=== PATIENT | female | born 1945 | race Caucasian/White ===

== ENCOUNTER → 2017-07-02 | Day surgery (SDC) | payer BC, MEDICARE ==
[2017-07-02 13:49] VITALS: RESP 12; TEMP 98.2
[2017-07-02 16:10] VITALS: BP 139/78; PULSE 65
--- NOTE | 2017-07-02 16:55 | MM ---
EXAMINATION TYPE: MG stereo VAD BX LT, MG stereo VAD BX addl LT DATE OF EXAM: 07/02/2017 COMPARISON: 05/23/2017 CLINICAL HISTORY: 71-year-old female referred for biopsy of new left breast microcalcifications. TECHNIQUE: Stereotactic guided core biopsy of the left breast x 2. FINDINGS: The procedure of stereotactic guided core biopsy was explained to the patient. Benefits, alternatives, and risks were discussed. An informed consent was then obtained. SITE 1, 7:00: The shortness pathway for biopsy was chosen. Shortness pathway was CC from below approach. I performed the localization followed by the remainder of the procedure. A vacuum assisted biopsy gun was used to obtain four core samples. A dumbbell clip was placed. Postbiopsy mammogram shows 3.5 to 4.0 cm of superior clip migration as indicated on the postbiopsy image. SITE 2, 3:00: A superior approach was chosen as the calcifications could not be well reproduced via a lateral approach. I performed the localization followed by the remainder of the procedure. A vacuum assisted biopsy gun was used to obtain four core samples. A straight clip was placed. Postbiopsy mammogram shows clip in appropriate position. The patient tolerated the procedure well without any immediate complication. The patient was kept in the radiology department for short stay after the procedure and then discharged home in stable condition. Targeted calcifications are identified in both specimen mammograms. IMPRESSION: SUCCESSFUL, UNCOMPLICATED STEREOTACTIC GUIDED CORE BIOPSY OF 2 SITES OF MICROCALCIFICATIONS IN THE LEFT BREAST. FULL PATHOLOGY RESULTS TO FOLLOW. Pathology Results: Malignant A. 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 SEE SURGICAL PATHOLOGY CANCER CASE SUMMARY AND COMMENT. B. 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 SEE SURGICAL PATHOLOGY CANCER CASE SUMMARY AND COMMENT. Recommendation Surgical consult of the left breast. DANELLED
== END ==
LOC: RADMAMWWP 13:10
PROVIDERS: ATTEND Surgery
DX: D05.12 Intraductal carcinoma in situ of left breast (principal)
CPT/HCPCS: 88305; 88342; 88341; 19081; 19082; A4648; J2001

== ENCOUNTER 2017-07-30 06:29 | Day surgery (SDC) | payer MEDICARE ==
[2017-07-25 10:00] VITALS: BMI 21.2
[~2017-07-30 06:29] MED LIST: DEXAMETHASONE SOD PHOSPHATE 10 MG/ML 1 ML VIAL IV ONE; HEPARIN SODIUM,PORCINE 5,000 UNIT/ML 1 ML VIAL SQ ONE; LACTATED RINGERS 1,000 ML IV SCH; ONDANSETRON 4 MG/2 ML VIAL IVP ONE; Pre Op ABX Message 1 EACH MISC MISCELLANE ONE
[2017-07-30] MEDS ORDERED: ALPRAZolam 0.25 MG TAB PO ONE (07:01)
[2017-07-30] MEDS ORDERED: LIDOCAINE 1% 20 ML VIAL (10MG/ML) FOR IV START INTRADERMA ONE (07:15)
[2017-07-30] MEDS ORDERED: ROCURONIUM BROMIDE 10 MG/ML 10 ML VIAL IV ONE (09:00)
[2017-07-30] MEDS ORDERED: HYDROmorphone (PF) 1 MG/ML ONE (09:00)
[2017-07-30] MEDS ORDERED: NEOSTIGMINE 1 MG/ML 10 ML VIAL ONE (09:00)
[2017-07-30] MEDS ORDERED: GLYCOPYRROLATE 0.2 MG/ML 2 ML VIAL ONE (09:00)
[2017-07-30] MEDS ORDERED: fentaNYL (PF) 50 MCG/ML 2 ML AMP ONE (09:00)
[2017-07-30] MEDS ORDERED: MIDAZOLAM 2 MG/2 ML VIAL ONE (09:00)
[2017-07-30] MEDS ORDERED: LIDOCAINE 1% INJ 10MG/ML (20 ML MDV) ONE (09:00)
[2017-07-30] MEDS ORDERED: ePHEDrine SULFATE/0.9% NACL/PF 50 MG/5 ML SYRINGE IV ONE (09:00)
[2017-07-30] MEDS ORDERED: PROPOFOL 10 MG/ML 20 ML VIAL IV ONE (09:00)
[2017-07-30] MEDS ORDERED: SUCCINYLCHOLINE CHLORIDE 100 MG/5 ML SYR IV ONE (09:00)
[2017-07-30] MEDS ORDERED: SODIUM CHLORIDE 0.9% 50 ML with ceFAZolin 2,000 MG IV ONE ×2 (09:16)
--- NOTE | 2017-07-30 09:31 | NM ---
EXAMINATION TYPE: NM sentinel node injection DATE OF EXAM: 07/30/2017 COMPARISON: NONE HISTORY: Left breast carcinoma TECHNIQUE AND FINDINGS: The procedure of sentinel lymph node injection was explained to the patient. The benefits, alternatives, and risks were discussed. An informed consent was then obtained. Overlying skin is cleaned with sterile alcohol. Lidocaine buffered with bicarbonate was used as anes thetic into the skin and subcutaneous tissue surrounding the nipple. Following this, 590 uCi Tc 99m Filtered Sulfur Colloid was injected into 4 equivalent doses at 12, 3, 6, and 9:00 position surroundi ng the left nipple intradermally. The injection sites were massaged by nuclear pharmacist for 10 minutes after injection. T he patient tolerated the procedure well without any immediate complication. The patient was kept in the radiology department for short stay after the procedure and then taken to surgery for surgical pr ocedure what is presumed intraoperative gamma probe will be used for sentinel lymph node detection. IMPRESSION: Left breast radiotracer injection for sentinel node localization as above.
[2017-07-30] MEDS ORDERED: METHYLENE BLUE 10 MG/ML (10 ML VIAL) INJ ONE (09:32)
[2017-07-30] MEDS ORDERED: LACTATED RINGERS 1,000 ML IV ONE (09:58)
--- NOTE | 2017-07-30 11:05 | P.OP ---
Date of Procedure: 07/30/17 Preoperative Diagnosis: Left breast multifocal DCIS Anxiety disorder Personal H/O colon cancer Postoperative Diagnosis: Same Procedure(s) Performed: Left skin sparing mastectomy Left sentinel lymph node biopsy Anesthesia: VANESSA Surgeon: Judie Man Estimated Blood Loss (ml): 10 Pathology: other Condition: stable Disposition: PACU Indications for Procedure: 72 years old female presented with abnormal mammogram. Biopsy showed 2 distinct sites with DCIS. Informed consent obtained and patient elected to undergo left simple mastectomy with sentinel lymph node biopsy with possible axillary lymph node dissection. She is also undergoing immediate reconstruction with tissue handbag stitcher with Dr. Peguero. Operative Findings: 3 sentinel lymph nodes identified in left axilla all of which were negative for cancer Description of Procedure: The patient underwent injection of radioisotope in the radiology department. She was brought to the operating room and placed in supine position with both arms out. 5 mL of methylene blue was injected in the subdermal plane at 4 quadrants around the areola and the breast was massaged for 5 minutes . General anesthesia with endotracheal intubation was performed as per anesthesia team. No muscle relaxants were given. Chlorhexidine was used to prep the left breast and left axilla . Sterile drapes were applied. A timeout was performed to verify correct patient and correct procedure. Patient was confirmed to receive perioperative IV antibiotics, heparin 5000 units subcutaneous injection for the VTE prophylaxis and bilateral SCDs were placed. A keyhole-type skin incision was made extending from 1:00 to include the nipple and areola. Superior flap was raised up to inferior margin of the clavicle, medially to lateral margin of the sternum, inferior flap extending to inframammary crease and laterally to pectoralis major muscle. The breast tissue along with the pectoralis fascia was taken off with the specimen. Hemostasis checked. After entering the clavicopectoral fascia, a blue node was identified. This node was excised in its entirety. Additional 2 blue nodes were also identified and sent as sentinel lymph nodes for frozen section. [place] lymph nodes were negative for malignancy.Counts were correct. Please see Dr. Peguero' s note for remaining details Final Pathologic Diagnosis A. SENTINEL LYMPH NODES # 1 AND 2, BIOPSY: TWO LYMPH NODES NEGATIVE FOR METASTASIS. CK7 AND CINTHIA IMMUNOPEROXIDASE STAINS ARE CONFIRMATORY (CONTROLS APPROPRIATE). B. SENTINEL LYMPH NODE #3, BIOPSY: LYMPH NODE NEGATIVE FOR METASTASIS. CK7 AND CINTHIA IMMUNOPEROXIDASE STAINS ARE CONFIRMATORY (CONTROLS APPROPRIATE). C. BREAST, LEFT, MASTECTOMY: MULTIFOCAL HIGH GRADE DCIS, MARGINS NEGATIVE.
[2017-07-30] MEDS ORDERED: ONDANSETRON 4 MG/2 ML VIAL IVP PRN (11:08)
[2017-07-30] MEDS ORDERED: ALPRAZolam 0.25 MG TAB PO PRN (11:08)
[2017-07-30] MEDS: HYDROmorphone 1 MG/ML 1 ML SYRINGE IVP PRN ×2 (12:00→12:07)
[2017-07-30] MEDS: HYDROcodone/APAP 5-325MG 1 EACH TAB PO PRN ×2 (12:08→19:45)
[2017-07-30] MEDS ORDERED: HYDROmorphone 1 MG/ML 1 ML SYRINGE IVP ONE (15:31)
[2017-07-30] MEDS: LACTATED RINGERS 1,000 ML IV SCH (15:40)
[2017-07-30] MEDS: HEPARIN SODIUM,PORCINE 5,000 UNIT/ML 1 ML VIAL SQ SCH (16:49)
--- NOTE | 2017-07-30 19:55 | OP ---
OPERATIVE REPORT SURGEON: Dr. Kedar Peguero. DATE OF PROCEDURE: 07/30/2017 PREOPERATIVE DIAGNOSIS: 1. Acquired loss, left breast. 2. Left breast cancer. POSTOPERATIVE DIAGNOSIS: 1. Acquired loss, left breast. 2. Left breast cancer. OPERATIVE PROCEDURES: 1. Immediate reconstruction of left breast following mastectomy with insertion of tissue senior budget analyst and subsequent outpatient expansion. 2. Implantation of reconstructive graft for left breast reconstruction, 150 square cm. OPERATIVE INDICATIONS: Patient is a 72-year-old female with ductal carcinoma in situ of the left breast. She is here for left simple mastectomy with sentinel lymph node excision. The patient was referred to my care by her surgeon, Dr. Man, for breast reconstruction. The patient has elected to proceed with breast reconstruction and has decided upon a tissue senior budget analyst style technique. She understands the potential risks and complications of surgery as well as the staged nature of breast reconstructive surgery. She has requested I perform the surgery today. OPERATIVE PROCEDURE SUMMARY: The patient was seen presurgical area and markings were made, procedure reviewed, all questions answered. She was transported to the operating room, where she was placed in supine position. Following induction of general endotracheal anesthesia, the patient was prepped and draped in the usual fashion. Dr. Man then proceeded with the left simple mastectomy and left sentinel lymph node excision. Once those procedures were complete and the nodes were reported as negative, I then entered the procedure. Again, the patient was in supine position under general tracheal anesthesia. All sponge and needle counts for the prior procedure were correct. The left mastectomy wound was open with exposed muscle. At the base, the muscle appeared healthy. There was no active bleeding. There was a dissection pocket that extended into the left axilla from the sentinel lymph node excision as well. The wound was first irrigated. The pectorals major muscle was then identified where it joined the chest wall laterally. ( ) area all the connective tissue divided with cautery, allowing entry into the potential plane between the pectoralis major and minor muscles, which were first bluntly developed and then continued development with cauterization to release the attachment fibers, medial attachment fibers ( ) released with cautery. Additional muscle tissues were recruited for coverage inferomedially, rectus abdominus muscle and fascia inferiorly and laterally, external abdominal oblique muscle and fascia and laterally serratus anterior muscle and fascia were all elevated with cauterization. Hemostasis was maintained with cautery. Irrigation was then performed. Excellent hemostasis was present. The cavity was sized by measuring. Next two 19 round Dread channel drains were inserted in the surgical field, one for the sentinel lymph node dissection plane and the other to place under the mastectomy skin flaps. Drains were brought out of separate stab incisions in the left anterolateral chest wall, each drain sutured in place with 2-0 Prolene suture cut to appropriate length. The gloves were now changed, tissue senior budget analyst opened in the field from the [email or web address]. Interview [employer] high-profile model, reference number [id number], volume 375 mL, serial number [id number]. Device was only handled by the surgeon. All air was extracted from the device and then 50 mL of 0.9 normal saline instilled. The senior budget analyst was then inserted into the submuscular reconstructive plane created. The muscle could not be approximated over the senior budget analyst without significant tension; likely this would tear the muscle; therefore Surgimend reconstructive graft was opened on the field. The SurgiMend measured 10 x 15 cm. It was thin and fenestrated. SurgiMend was revitalized with room temperature saline. Once ready, the SurgiMend was then placed for the reconstruction deep to the muscle flap tissue but above the senior budget analyst and oriented in inferior sling technique. The SurgiMend was then sutured in with short running 3-0 Prolenes. The entire coverage of the senior budget analyst was now present. Irrigation was performed. Hemostasis was excellent. The mastectomy skin incision was closed. The lateral extension used for the node dissection was approximated directly, closing the deep dermis using inverted interrupted 4-0 Monocryl, and the closure of the superficial dermis and epidermis with running 5-0 Prolene. The circumareolar portion of the incision was closed with a pursestring using a deep dermal 2-0 Prolene followed by final approximation of the epidermal edges with 4-0 Monocryl. The site was cleansed with saline, dried, postoperative bandages placed using 4x4s secured with paper tape. Drains were connected to closed-bulb suction and patent. The patient was then awakened from her anesthetic, extubated and transferred to the recovery room in good condition with stable vital signs. There were no complications. MMODL / IJN: [id number] /
[2017-07-30] MEDS: DOCUSATE 100 MG CAP PO SCH (19:59)
[2017-07-30 20:57] VITALS: RESP 20
[2017-07-30] MEDS ORDERED: ZOLPIDEM 5 MG TAB PO SCH (21:00)
[2017-07-31] MEDS: HYDROcodone/APAP 5-325MG 1 EACH TAB PO PRN ×2 (02:18→07:36)
[2017-07-31] MEDS: LACTATED RINGERS 1,000 ML IV SCH (04:17)
[2017-07-31] MEDS: HEPARIN SODIUM,PORCINE 5,000 UNIT/ML 1 ML VIAL SQ SCH ×2 (04:17→07:37)
[2017-07-31] MEDS: DOCUSATE 100 MG CAP PO SCH (07:28)
[2017-07-31 08:54] VITALS: BP 141/67; PULSE 69; TEMP 97.2
--- NOTE | 2017-07-31 11:14 | P.DS ---
Providers Date of admission: July 30 Expected date of discharge: 07/31/17 Attending physician: Judie Man Consults: dr ledesma Primary care physician: [facility] Hospital Course: 72-year-old presented on elective basis to undergo left simple mastectomy for an abnormal mammogram. Biopsy showed 2 distinct sites with DCIS. Ductal carcinoma in situ left breast 3 SENTINEL lymph nodes identified in left axillary all of which were negative for cancer. Patient underwent immediate reconstruction with tissue helminthology teacher left breast per . Postop there were no events. Patient had [address] Jonathan-[address] dra[address] in [address]. Patient was able to be up ambulatory in the room denies dizziness lightheadedness chest pain or shortness of breath patient was felt to be appropriate to be discharged home with the plan the patient with follow-up with DR LEDESMA for subsequent outpatient expansion of the tissue helminthology teacher left breast Impression discharge diagnosis Left breast cancer with left simple mastectomy Immediate reconstruction of left breast following simple mastectomy with insertion of tissue helminthology teacher with subsequent outpatient expansion Anxiety disorder nonspecified Left breast with multifocal ductal carcinoma in situ left breast The above impression and plan of care have been discussed and directed by signing physician. Angélica Andrews nurse practitioner acting as scribe for signing physician. Plan - Discharge Summary New Discharge Prescriptions: New HYDROcodone/APAP 5-325MG [Chardon 5-325] 1 each PO Q4HR PRN #20 tab PRN Reason: Pain Continue Cyanocobalamin [Vitamin B-12] 500 mcg PO DAILY Cholecalciferol (Vitamin D3) [Vitamin D3] 2,000 unit PO DAILY Calcium Carbonate [Calcium] 600 mg PO Q3D ALPRAZolam [Xanax] 1 tab PO HS PRN PRN Reason: Anxiety Discharge Medication List Cholecalciferol (Vitamin D3) [Vitamin D3] 2,000 unit PO DAILY 06/24/17 [History] Cyanocobalamin [Vitamin B-12] 500 mcg PO DAILY 06/24/17 [History] Calcium Carbonate [Calcium] 600 mg PO Q3D 07/25/17 [History] ALPRAZolam [Xanax] 1 tab PO HS PRN 07/30/17 [History] HYDROcodone/APAP 5-325MG [Chardon 5-325] 1 each PO Q4HR PRN #20 tab 07/31/17 [Rx] Follow up Appointment(s)/Referral(s): Judie Man MD [STAFF PHYSICIAN] - 08/18/17 Kedar Ledesma MD [STAFF PHYSICIAN] - 1 Week Patient Instructions/Handouts: *Surgery [facility] - (Anesthesia) Discharge Instructions Outpatient Surgery, Breast Reconstruction With Implants and Expanders (DC), Mastectomy (DC) Activity/Diet/Wound Care/Special Instructions: No soaking bath. Ok to shower once drains are out. No heavy lifting more than 10lbs for 6 weeks after surgery. Ok to use stairs and walk. do not drive while taking Chardon for pain. HERO drain monitor. CALL DR ROJO'S OFFICE AND SCHEDULE RECHECK FOR FRIDAY [phone] Discharge Disposition: HOME SELF-CARE
== END 2017-07-31 11:55 | disposition home or self-care (01) ==
LOC: OR 06:29 → 6PED 11:49 → OR 07-31 11:55
PROVIDERS: ATTEND Surgery
DX: D05.12 Intraductal carcinoma in situ of left breast (principal); F41.1 Generalized anxiety disorder; F32.9 Major depressive disorder, single episode, unspecified; Z85.038 Personal history of other malignant neoplasm of large intestine; Z90.49 Acquired absence of other specified parts of digestive tract; E55.9 Vitamin D deficiency, unspecified; D64.9 Anemia, unspecified; M81.0 Age-related osteoporosis without current pathological fracture; Z79.899 Other long term (current) drug therapy; Z88.8 Allergy status to other drugs, medicaments and biological substances
CPT/HCPCS: 88342; 88331; 88307; 88341; 38792; 19303; 19357; 15777; C1763; A9541; J2250; J1644 ×2; J1100; J2710; J2405; J2001; Q9968; J3010; J1170; J0690; J0330; J2704

== ENCOUNTER 2018-02-24 12:21 | Day surgery (SDC) | payer MEDICARE ==
[2018-02-16 15:51] VITALS: BMI 21.1
[~2018-02-24 12:21] MED LIST changes: -HEPARIN SODIUM,PORCINE 5,000 UNIT/ML 1 ML VIAL SQ ONE; +MIDAZOLAM 2 MG/2 ML VIAL IV PRN; +MORPHINE SULFATE 4MG/4ML SYRG IV PRN; -Pre Op ABX Message 1 EACH MISC MISCELLANE ONE; +ceFAZolin IN SWFI 2 GM/20 ML SYRINGE IVP ONE
[2018-02-24] MEDS ORDERED: LACTATED RINGERS 1,000 ML IV ONE ×2 (12:35→16:59)
[2018-02-24] MEDS ORDERED: LIDOCAINE 1% 20 ML VIAL (10MG/ML) FOR IV START INTRADERMA ONE (12:47)
[2018-02-24] MEDS ORDERED: ePHEDrine SULFATE/0.9% NACL/PF 50 MG/5 ML SYRINGE IV ONE (15:31)
[2018-02-24] MEDS ORDERED: SUCCINYLCHOLINE CHLORIDE 100 MG/5 ML SYR IV ONE (15:31)
[2018-02-24] MEDS ORDERED: fentaNYL (PF) 50 MCG/ML 2 ML AMP ONE (15:31)
[2018-02-24] MEDS ORDERED: PROPOFOL 10 MG/ML 20 ML VIAL IV ONE (15:31)
[2018-02-24] MEDS ORDERED: LIDOCAINE 1% INJ 10MG/ML (20 ML MDV) ONE (15:31)
[2018-02-24] MEDS ORDERED: MIDAZOLAM 2 MG/2 ML VIAL ONE (15:31)
[2018-02-24 17:28] VITALS: TEMP 97.8
[2018-02-24 18:04] VITALS: RESP 16
[2018-02-24 18:36] VITALS: BP 136/73; PULSE 90
--- NOTE | 2018-02-24 21:37 | OP ---
OPERATIVE REPORT DATE OF SURGERY: February 24, 2018 PREOPERATIVE DIAGNOSES:: 1. Acquired loss, left breast. 2. Personal history of breast cancer, left breast. 3. Personal history of left mastectomy. 4. Acquired loss, left breast inframammary fold. 5. Acquired deformity, left reconstructed breast. POSTOPERATIVE DIAGNOSES:: 1. Acquired loss, left breast. 2. Personal history of breast cancer, left breast. 3. Personal history of left mastectomy. 4. Acquired loss, left inframammary fold. 5. Acquired deformity, left reconstructed breast. OPERATION:: 1. Replacement of left breast tissue airflight attendants supervisor with silicone breast implant for left breast reconstruction. 2. Revision of left reconstructed breast. 3. Reconstruction, left breast inframammary fold via local advancement flap, 32 cm2. 4. Implantation of reconstructive graft for left breast reconstruction, 150 cm2. ESTIMATED BLOOD LOSS:: SPECIMEN TAKEN:: SURGEON: Dr. Kedar Peguero. OPERATIVE INDICATIONS: The patient is a 72-year-old female who has undergone a left mastectomy for treatment of breast cancer with immediate reconstruction at that time via tissue airflight attendants supervisor technique. Her postoperative course from that surgery was unremarkable. She has completed subsequent outpatient expansion, is returning to surgery today for the 2nd stage of her breast reconstruction process, which will include removal of her tissue airflight attendants supervisor, revision of her reconstructed breast due to significant contour irregularities and deformities caused from the mastectomy and tissue expansion processes as well as reconstruction the inframammary fold that has been effaced by the mastectomy and tissue expansion. She understands the potential risks and complications associated with all surgery and some unique circumstances associated with the surgery, including wound healing problems, hematoma, seroma, postoperative infection and the possible need for future surgery, among others. She has requested I perform the surgery. NARRATIVE:: The patient was seen in the presurgical area, markings made, procedure reviewed, all questions answered. She was then transported to the operating room, where she was placed in supine position. Following induction of general tracheal anesthesia, the patient was prepped and draped in the usual fashion. All surgery was performed under loupe magnification. The diagram was made for a left breast incision using the prior mastectomy scar. It was oriented transversely. Skin incisions were made with a 10 blade scalpel, dividing the skin full-thickness fashion followed by use of cauterization to divide subcutaneous tissue. The skin and subcutaneous tissue flaps were then elevated off the underlying muscle flap tissue. Extensive dissection was required to release contour irregularities and deformities caused from the reconstructive and mastectomy processes to allow for optimal draping following placement of the implant. Once this was completed, incision was then made in transverse fashion through the muscle flap tissue. This incision was made in the inferior pole over the airflight attendants supervisor and offset from the transverse skin incision. The airflight attendants supervisor was exposed and then removed. The airflight attendants supervisor was intact. The cavity appeared normal with a small amount of serous fluid. No exudates, no granulation tissue. The cavity was irrigated. The expansion capsule was hypertrophic and complete capsulotomy incision was made where the capsule joined the chest wall, followed by multiple cruciate incisions through the capsule structure to release the tightness of the capsule. This did allow expansion of the capsule. Hemostasis was maintained with cautery. Inferiorly through the lower capsulotomy incision, skin and subcutaneous tissue flap was developed for reconstruction of an inframammary fold. The flap was dissected with cauterization and measured 16 x 2 cm2. Once created, the flap was advanced in a cephalad fashion and secured to the chest wall using interrupted 0 Vicryl suture in several discrete locations, creating a well-formed discrete inframammary fold in a symmetrical location to the patient's right breast. This was evaluated with the patient in a seated up position. Temporary implant sizers were opened on the field. Ultimately, 350 mL sizer appeared best. The patient has returned to supine position, the temporary implant sizer removed, the cavity re-irrigated. Hemostasis was excellent. Gloves were now changed. It was determined from placement of the sizer that the muscle flap tissue could not be directly approximated over an implant of this size; therefore, SurgiMend reconstructive graft was opened on the field that measured 10 x 15 cm2. The SurgiMend was revitalized in room temperature saline and once ready, it was sutured just above the inframammary fold using interrupted 3-0 Vicryl sutures. New gloves were obtained and then the implant opened on the field. The implant was from the [employer]. It was reference #[id number] , serial #[id number]. Device was only handled by surgeon. It was irrigated with saline. Device was inserted directly in the reconstructive cavity. The SurgiMend was advanced over the implant and then placed deep to the muscle flap tissue as the muscle flap tissue was advanced in a caudad fashion over the SurgiMend. The SurgiMend and the muscle flap tissue were then inset to each other using interrupted 3-0 Vicryl, providing complete coverage to the implant. The site was irrigated. Hemostasis remained excellent. The skin incisions were now closed, approximating deep dermis using inverted interrupted 4-0 Monocryl followed by closure of superficial dermis and epidermis with running 5-0 Prolene. Surgical verduzco cleansed with saline, dried, covered postoperative bandages using 4 x 4's secured with 3M tape and positioning a size 2 mammary support. The patient was then awakened from anesthetic, extubated and transferred to the recovery room in good condition with stable vital signs. The estimated blood loss was 25 mL and there were no complications. MMODL / IJN: [id number] /
== END 2018-02-24 18:49 | disposition home or self-care (01) ==
LOC: OR 12:21
PROVIDERS: ATTEND Plastic Surgery
DX: N65.0 Deformity of reconstructed breast (principal); F32.9 Major depressive disorder, single episode, unspecified; F41.9 Anxiety disorder, unspecified; Z90.49 Acquired absence of other specified parts of digestive tract; Z90.12 Acquired absence of left breast and nipple; Z85.3 Personal history of malignant neoplasm of breast; Z88.7 Allergy status to serum and vaccine; Z85.038 Personal history of other malignant neoplasm of large intestine
CPT/HCPCS: 19342; 14301; 15777; C1789; C1763; J2250; J1100; J2405; J2001; J3010; J0330; J2704; J0690; J2270